=== PATIENT | male | born 1945 | race Caucasian/White ===

== ENCOUNTER 2017-11-04 11:12 | Emergency (ER) | payer OTHER ==
[2017-11-04] MEDS ORDERED: NA CHLORIDE 0.9% 1,000 ML ONE (12:34)
[2017-11-04 12:44] LABS: Absolute Lymphocytes (CBC) 1.1 K/uL (0.7-4.9); Absolute Monocytes 0.5 K/uL (0.1-1.3); Absolute Neutrophil 3.4 K/uL (1.8-8.0); Basophils % 0.6 % (0-1.3); Eosinophils % 0.8 % (0-4.4); Hematocrit 39.7 % (39.6-49.0); Lymphocytes % 21.6 % (15.3-44.8); MCH 30.2 pg (27.0-35.0); MCV 87.4 fL (80-100); MPV 8.5 fL (7.6-11.3); RBC Red Blood Cell Count 4.54 M/uL (4.33-5.43)
[2017-11-04 12:57] LABS: Potassium 4.1 mmol/L (3.5-5.1)
--- NOTE | 2017-11-04 13:19 | EDPHYS ---
Physician Documentation [facility] Name: Neo Winston Age: 72 yrs Sex: Male : 1945 Arrival Date: 11/04/2017 Time: 11:16 Bed 20 Private MD: Gualberto Regan ED Physician Fei Roa HPI: 11/04 13:14 This 72 yrs old Male presents to ER via Ambulatory with complaints of gs Dizziness. 13:14 The patient presents with feeling faint. Onset: The symptoms/episode began/occurred gs acutely. Context: occurred buddhist, just prior to the episode the patient experienced lightheadedness. Modifying factors: The symptoms are alleviated by nothing, the symptoms are aggravated by nothing. Associated signs and symptoms: Pertinent negatives: agitation, confusion, focal weakness, palpitations. Severity of symptoms: At their worst the symptoms were moderate in the emergency department the symptoms have resolved. Patient's baseline: Neuro: alert and fully oriented, Motor: no deficits, Ambulation: walks without assistance. The patient has experienced similar episodes in the past, a few times. Historical: - Home Meds: 11:33 lisinopril 10 mg Oral tab 1 tab once daily [Active]; venlafaxine 37.5 mg oral tab 1 tab aj1 once daily [Active]; Flomax 0.4 mg Oral cp24 1 cap as needed [Active]; - PMHx: 11:33 Hypertension; aj1 - PSHx: 11:33 ear surgery; aj1 - Immunization history:: Flu vaccine is up to date. - Social history:: Smoking status: Patient/guardian denies using tobacco. - Ebola Screening: : Patient denies travel to an Ebola-affected area in the 21 days before illness onset. ROS: 13:14 All other systems are negative. gs Exam: 13:14 Head/Face: Normocephalic, atraumatic. Eyes: Pupils equal round and reactive to light, gs extra-ocular motions intact. Lids and lashes normal. Conjunctiva and sclera are non-icteric and not injected. Cornea within normal limits. Periorbital areas with no swelling, redness, or edema. ENT: Nares patent. No nasal discharge, no septal abnormalities noted. Tympanic membranes are normal and external auditory canals are clear. Oropharynx with no redness, swelling, or masses, exudates, or evidence of obstruction, uvula midline. Mucous membranes moist. Neck: Trachea midline, no thyromegaly or masses palpated, and no cervical lymphadenopathy. Supple, full range of motion without nuchal rigidity, or vertebral point tenderness. No Meningismus. Chest/axilla: Normal chest wall appearance and motion. Nontender with no deformity. No lesions are appreciated. Cardiovascular: Regular rate and rhythm with a normal S1 and S2. No gallops, murmurs, or rubs. Normal PMI, no JVD. No pulse deficits. Respiratory: Lungs have equal breath sounds bilaterally, clear to auscultation and percussion. No rales, rhonchi or wheezes noted. No increased work of breathing, no retractions or nasal flaring. Abdomen/GI: Soft, non-tender, with normal bowel sounds. No distension or tympany. No guarding or rebound. No evidence of tenderness throughout. Back: No spinal tenderness. No costovertebral tenderness. Full range of motion. Skin: Warm, dry with normal turgor. Normal color with no rashes, no lesions, and no evidence of cellulitis. MS/ Extremity: Pulses equal, no cyanosis. Neurovascular intact. Full, normal range of motion. Neuro: Awake and alert, GCS 15, oriented to person, place, time, and situation. Cranial nerves II-XII grossly intact. Motor strength 5/5 in all extremities. Sensory grossly intact. Cerebellar exam normal. Normal gait. 13:14 Constitutional: The patient appears alert, awake. 13:14 ECG was reviewed by the Attending Physician. Vital Signs: 11:33 BP 101 / 63; Pulse 62; Resp 18; Temp 97.8(O); Pulse Ox 98% on R/A; Weight 65.32 kg (R); aj1 Height 5 ft. 5 in. (165.10 cm) (R); Pain 0/10; 12:52 BP 117 / 71; Pulse 59; Resp 18; Pulse Ox 100% on R/A; Pain 0/10; em 13:01 BP 108 / 58 Supine; Pulse 63; Resp 16; Pulse Ox 100% on R/A; mh5 13:43 BP 117 / 60; Pulse 58; Resp 16; Pulse Ox 100% on R/A; Pain 0/10; em 11:33 Body Mass Index 23.96 (65.32 kg, 165.10 cm) aj1 MDM: 12:08 Patient medically screened. gs 13:14 Differential diagnosis: cardiac arrhythmia, generalized weakness, hypovolemia. Data gs reviewed: vital signs, nurses notes. Response to treatment: the patient's symptoms have resolved after treatment, and as a result, I will discharge patient. 11/04 12:10 Order name: CBC with Diff; Complete Time: 13:07 11/04 12:10 Order name: Basic Metabolic Panel; Complete Time: 13:07 11/04 12:10 Order name: EKG; Complete Time: 12:10 11/04 12:10 Order name: EKG - Nurse/Tech; Complete Time: 12:50 EC:14 Rate is 55 beats/min. Rhythm is regular. PA interval is normal. QRS interval is normal. gs T waves are Normal. No ST changes noted. Clinical impression: Normal ECG. Interpreted by me. Administered Medications: 12:40 Drug: NS 0.9% 1000 ml Route: IV; Rate: 1 bolus; Site: right antecubital; em 13:45 Follow up: IV Status: Completed infusion; IV Intake: 1000ml em Disposition: 11/04/17 13:18 Discharged to Home. Impression: near syncope. - Condition is Stable. - Discharge Instructions: Near-Syncope. - Medication Reconciliation Form, Thank You Letter, Antibiotic Education, Prescription Opioid Use form. - Follow up: Private Physician; When: 2 - 3 days; Reason: Re-evaluation by your physician. Signatures: Dispatcher [employer] Karely Hi RN RN aj1 Randy Cruz, INDUSTRIAL MAINTENANCE MANAGER INDUSTRIAL MAINTENANCE MANAGER em Fei Roa MD MD Corrections: (The following items were deleted from the chart) 13:46 13:18 11/04/2017 13:18 Discharged to Home. Impression: near syncope. Condition is em Stable. Forms are Medication Reconciliation Form, Thank You Letter, Antibiotic Education, Prescription Opioid Use. Follow up: Private Physician; When: 2 - 3 days; Reason: Re-evaluation by your physician. gs
--- NOTE | 2017-11-04 13:19 | ER ---
Nurse's Notes [facility] Name: Neo Winston Age: 72 yrs Sex: Male : 1945 Arrival Date: 11/04/2017 Time: 11:16 Bed 20 Private MD: Gualberto Regan Diagnosis: near syncope Presentation: 11/04 11:22 Presenting complaint: Patient states: He was watching a video in [employer] and began to aj1 feel hot and dizzy. Some [employer] members helped him to a bench and after a while he felt better. States this has happened to him once before and he was admitted. Denies syncope. Denies dizziness at this time. Denies chest pain and shortness of breath. Transition of care: patient was not received from another setting of care. Onset of symptoms was November 04, 2017. Risk Assessment: Do you want to hurt yourself or someone else? Patient reports no desire to harm self or others. Initial Sepsis Screen: Does the patient meet any 2 criteria? No. Patient's initial sepsis screen is negative. Does the patient have a suspected source of infection? No. Patient's initial sepsis screen is negative. Care prior to arrival: None. 11:22 Method Of Arrival: Ambulatory aj1 11:22 Acuity: HAYLEY 3 aj1 Triage Assessment: 11:33 General: Appears in no apparent distress. comfortable, Behavior is calm, cooperative, aj1 appropriate for age. Pain: Denies pain. EENT: Reports nasal congestion. Neuro: Level of Consciousness is awake, alert, obeys commands, Oriented to person, place, time, situation, Gait is steady, Speech is normal, Facial symmetry appears normal, Reports dizziness. Cardiovascular: Denies chest pain, palpitations, shortness of breath, syncope, Patient's skin is warm and dry. Respiratory: Airway is patent Respiratory effort is even, unlabored, Respiratory pattern is regular, symmetrical. Derm: Skin is pink, warm \T\ dry. normal. Historical: - Home Meds: 11:33 lisinopril 10 mg Oral tab 1 tab once daily [Active]; venlafaxine 37.5 mg oral tab 1 tab aj1 once daily [Active]; Flomax 0.4 mg Oral cp24 1 cap as needed [Active]; - PMHx: 11:33 Hypertension; aj1 - PSHx: 11:33 ear surgery; aj1 - Immunization history:: Flu vaccine is up to date. - Social history:: Smoking status: Patient/guardian denies using tobacco. - Ebola Screening: : Patient denies travel to an Ebola-affected area in the 21 days before illness onset. Screenin:53 Abuse screen: Denies threats or abuse. Nutritional screening: No deficits noted. em Tuberculosis screening: No symptoms or risk factors identified. Fall Risk None identified. Assessment: 12:00 General: Appears in no apparent distress. comfortable, Behavior is calm, cooperative. em General: Reports having dizziness and blurred vision while at [employer], denies N/V, headache, numbness or tingling, symptoms have resolved. Pain: Denies pain. Neuro: Level of Consciousness is awake, alert, obeys commands, Oriented to person, place, time, situation, Moves all extremities. Speech is normal, Facial symmetry appears normal, Intact Denies weakness dizziness, photophobia. Cardiovascular: Capillary refill < 3 seconds Patient's skin is warm and dry. Respiratory: Airway is patent Respiratory effort is even, unlabored, Respiratory pattern is regular, symmetrical. GI: Abdomen is flat. : No signs and/or symptoms were reported regarding the genitourinary system. Derm: Skin is intact, Skin is pink, warm \T\ dry. Musculoskeletal: Range of motion: intact in all extremities. 12:30 Reassessment: Patient appears in no apparent distress at this time. I agree with above iw assessment by Randy Cruz LVN. 13:00 Reassessment: Patient appears in no apparent distress at this time. Patient and/or em family updated on plan of care and expected duration. Pain level reassessed. Patient is alert, oriented x 3, equal unlabored respirations, skin warm/dry/pink. Patient denies pain at this time. 13:44 Reassessment: Patient appears in no apparent distress at this time. Patient and/or em family updated on plan of care and expected duration. Pain level reassessed. Patient is alert, oriented x 3, equal unlabored respirations, skin warm/dry/pink. Patient denies pain at this time. Vital Signs: 11:33 BP 101 / 63; Pulse 62; Resp 18; Temp 97.8(O); Pulse Ox 98% on R/A; Weight 65.32 kg (R); aj1 Height 5 ft. 5 in. (165.10 cm) (R); Pain 0/10; 12:52 BP 117 / 71; Pulse 59; Resp 18; Pulse Ox 100% on R/A; Pain 0/10; em 13:01 BP 108 / 58 Supine; Pulse 63; Resp 16; Pulse Ox 100% on R/A; 5 13:43 BP 117 / 60; Pulse 58; Resp 16; Pulse Ox 100% on R/A; Pain 0/10; em 11:33 Body Mass Index 23.96 (65.32 kg, 165.10 cm) aj ED Course: 11:16 Patient arrived in ED. mr 11:16 Gualberto Regan MD is Private Physician. mr 11:30 Triage completed. aj1 11:33 Arm band placed on Patient placed in an exam room. aj1 11:38 Randy Cruz LVN is Primary Nurse. em 11:44 Fei Roa MD is Attending Physician. gs 12:30 Initial lab(s) drawn, by nc, sent to lab. Inserted saline lock: 20 gauge in right em antecubital area, using aseptic technique. Blood collected. 12:52 Patient has correct armband on for positive identification. Placed in gown. Bed in low em position. Call light in reach. 13:41 No provider procedures requiring assistance completed. em 13:43 IV discontinued, intact, bleeding controlled, No redness/swelling at site. Pressure em dressing applied. Administered Medications: 12:40 Drug: NS 0.9% 1000 ml Route: IV; Rate: 1 bolus; Site: right antecubital; em 13:45 Follow up: IV Status: Completed infusion; IV Intake: 1000ml em Intake: 13:45 IV: 1000ml; Total: 1000ml. em Outcome: 13:18 Discharge ordered by . gs 13:43 Discharged to home ambulatory. em 13:43 Condition: good 13:43 Discharge instructions given to patient, Instructed on discharge instructions, follow up and referral plans. Demonstrated understanding of instructions, follow-up care. 13:46 Patient left the ED. em Signatures: Karely Velasquez RN RN aj1 Rivera, Maria mr Randy Cruz LVN [employer] em Yany Scott RN RN iw Martinez, Maria [facility] Fei Roa MD MD Corrections: (The following items were deleted from the chart) 13:26 13:02 BP 117 / 57 Sitting; Pulse 64bpm; Resp 18bpm; Pulse Ox 98% RA; [place] [address] 13: 13:04 BP 121 / 65 Standing; Pulse 67bpm; Resp 18bpm; Pulse Ox 99% RA; [place] [address]
[2017-11-04 13:52] VITALS: TEMP 97.8
[2017-11-04 13:53] VITALS: O2SAT 100
[2017-11-04 13:55] VITALS: BP 117/60
--- NOTE | 2017-11-05 09:13 | EKG ---
Test Date: 2017-11-04 Test Time: 12:44:58 Alternative Dispute Resolution Mediator: MERY MEASUREMENT RESULTS: Intervals: Rate: 55 NC: 164 QRSD: 86 QT: 428 QTc: 409 Reeves: P: 76 NC: 164 QRS: 84 T: 54 INTERPRETIVE STATEMENTS: Sinus bradycardia Otherwise normal ECG Compared to ECG 12/30/2015 06:50:10 Sinus rhythm no longer present Incomplete right bundle-branch block no longer present Electronically Signed On 11-05-17 09:12:32 CDT by Gonzalo Cota
== END 2017-11-04 13:46 | disposition home or self-care (01) ==
LOC: ER 11:12
DX: R55 Syncope and collapse (principal); I10 Essential (primary) hypertension
CPT/HCPCS: 36415; 80048; 85025; 93005; 96360; 99284; J7030

== ENCOUNTER 2020-08-31 07:08 | Day surgery (SDC) | payer OTHER ==
--- NOTE | 2020-08-30 08:48 | RAD REPORT ---
EXAM DESCRIPTION: RAD - Chest Pa And Lat (2 Views) - 08/30/2020 8:42 am CLINICAL HISTORY: preop Chest pain. COMPARISON: Chest Single View dated 12/30/2015; Chest Single View dated 12/29/2015; CHEST PA AND LAT 2 VIEW dated 09/18/2014; CHEST SINGLE VIEW dated 12/08/2013 FINDINGS: The lungs are clear. The heart is upper limit of normal in size. No displaced fractures. IMPRESSION: No acute or concerning finding suspected.
[2020-08-30 09:11] LABS: Absolute Lymphocytes (CBC) 1.5 K/uL (0.7-4.9); Basophils % 0.7 % (0-1.3); Hematocrit 40.9 % (39.6-49.0); MPV 8.9 fL (7.6-11.3); RBC Red Blood Cell Count 4.72 M/uL (4.33-5.43)
[2020-08-30 09:27] LABS: BUN Blood Urea Nitrogen 21 mg/dL (7-18); Bicarbonate 28 mmol/L (21-32); Glucose Level 101 mg/dL (74-106); Potassium 3.7 mmol/L (3.5-5.1); Sodium Level 138 mmol/L (136-145)
[2020-08-30 09:28] LABS: Protime INR 0.96
[2020-08-31] MEDS ORDERED: Ringers Lactate 0 ML IV ONE (07:35)
[2020-08-31] MEDS ORDERED: AMPICILLIN SODIUM 2 GM in NA CHLORIDE 0.9% 100 ML IVPB SCH (08:00)
[2020-08-31] MEDS ORDERED: Gentamicin Inj 160 MG in NA CHLORIDE 0.9% 100 ML IV SCH (08:00)
[2020-08-31] MEDS ORDERED: FENTANYL CITR 100 MCG/2 ML ONE (08:59)
[2020-08-31] MEDS ORDERED: MIDAZOLAM HCL 2 MG/2 ML INJ ONE (08:59)
[2020-08-31] MEDS ORDERED: propofoL 200 MG/20 ML VIAL IV ONE (08:59)
[2020-08-31] MEDS ORDERED: LIDOCAINE 1% MPF 5 ML VIAL ONE (08:59)
[2020-08-31] MEDS ORDERED: Ringers Lactate 1,000 ML IV ONE (09:05)
[2020-08-31] MEDS ORDERED: KETOROLAC 30 MG/ML INJ ONE (09:33)
[2020-08-31] MEDS ORDERED: ONDANSETRON 4 MG/2 ML VIAL ONE (09:34)
[2020-08-31] MEDS ORDERED: EPHEDRINE SULF 50 MG/ML VIAL ONE (10:02)
[2020-08-31] MEDS ORDERED: NS 0.9% VIAL 10 ML ONE (10:03)
[2020-08-31 10:36] VITALS: O2SAT 99
[2020-08-31 11:49] VITALS: BP 113/53; TEMP 97.8
[2020-08-31] MEDS ORDERED: dexAMETHasone 4 MG/ML VIAL ONE (13:06)
--- NOTE | 2020-08-31 21:33 | OP ---
Surgeon: ERICH DORAN Preoperative Diagnoses: 1.Benign prostatic hypertrophy with lower urinary tract obstructive symptoms. 2.Urge incontinence. 3.Incomplete bladder emptying. Postoperative Diagnoses: 1.Benign prostatic hypertrophy with lower urinary tract obstructive symptoms. 2.Urge incontinence. 3.Incomplete bladder emptying. Principal Procedure: Bipolar transurethral resection of the prostate. Indication For Procedure: Mr. Winston is a 75-year-old gentleman who presented with obstructive lower urinary symptoms along with urge incontinence and incomplete emptying of his bladder which he felt w as being improved with medical therapy. Despite this and perhaps associated with the new data that w ould suggest an increased risk of CHF associated with use of the alpha kassie, class of BPH medicati on, he elected to proceed with surgical therapy and given the intravesical median lobe projection wit hout significant median bar with lateral sulci, a bipolar transurethral resection of the prostate was recommended. Procedure In Detail: Note: The patient was consented in the preoperative holding area before being transferred to the operative suite where general anesthesia was induced. He was given ampicillin and gentamicin 160 mg IV antimicrobial prophylaxis. Pneumo boots were provided for DVT prophylaxis. He was placed in the lithotomy position, padded and secured to the table appropriately. His genitalia were prepped using Hibiclens and he was draped in standard fashion. The case was begun using a 26-Fr ench resectoscope and a visual obturator to traverse the urethra and enter the bladder with ease. Th e bladder was surveyed, and there were no mucosal lesions, foreign bodies, or stones. The prostatic urethral anatomy was as previously described with an intravesical projecting component of the median lobe along with bilateral lobar hypertrophy. I then began by resecting the median lobe with direct v ision of the ureteral orifices bilaterally. Once the median lobe was resected down to the bladder ne ck, I then continued to resect a moderate component of an elevation of the median bar before progress ing with resection of the left lateral lobar hypertrophy and then proceeding to the anterior lobe and then to the right lateral lobar hypertrophy. All prostatic urethral chips were Ellik evacuated from the bladder, and the ureteral orifices were uninjured throughout the entirety of the resection. I t hen fulgurated the entirety of the fossa and any bleeding vessels in detail and even with his bladder decompressed, there was no bleeding noted at the conclusion of the procedure. There was no venous o oze either. As a result, I refilled his bladder and placed a 22-Ecuadorean 3-way Davalos catheter after re moving the resectoscope. Sterile water 30 cc was placed in the balloon, and the catheter was connect ed to CBI with normal saline at slow drip and was light pink to clear. The catheter was then placed to moderate traction, and the patient after being taken out of lithotomy, was transferred to a [facility] her and then to the recovery room in good condition. Complications: None. Estimated Blood Loss: Less than 20 cc. Discharge Disposition: He will be given a prescription for Tylenol No. 4 as well as Bactrim for 6 da ys to cover him through a voiding trial on either Sunday or Sunday. He may require anticholinergic m anagement or Myrbetriq if he has persistent issues with significant detrusor instability and urgency with urge incontinence. Otherwise, we would endeavor to have him wean off the alpha blockers usually within 1-3 months' time and he can follow up with me in about 3-6 months interval assessment. DENG/FRANCES Voice ID: [id number] Report ID: [id number]
== END 2020-08-31 11:44 | disposition home or self-care (01) ==
LOC: OR 07:08
PROVIDERS: ATTEND Urology
PROC: 0VT08ZZ Resection of Prostate, Via Natural or Artificial Opening Endoscopic (ICD-10-PCS; principal; 2020-08-31 08:30)
DX: N40.1 Benign prostatic hyperplasia with lower urinary tract symptoms (principal); N39.41 Urge incontinence; R33.9 Retention of urine, unspecified; Z20.822 Contact with and (suspected) exposure to COVID-19
CPT/HCPCS: 93005; 87088; 85025; 87086; 80048; 36415; 85610; 88305; 71046; 52601; U0003; J2704; J1580; J3010; J7120; J2405; J0290; J1100; J2250; J2469

== ENCOUNTER 2021-07-19 19:25 | Emergency (ER) | payer OTHER ==
--- OUTSIDE RECORDS SUMMARY | 2021-07-19 19:29 | XMS REPORT | Continuity of Care Document ---
:1945 Author Organization [facility] t Address [address] [place] [address] [place] [id number] Care Team Providers Name Role Phone Unavailable Unavailable Unavailable Problems This patient has no known problems. Allergies, Adverse Reactions, Alerts This patient has no known allergies or adverse reactions. Medications This patient has no known medications. Procedures This patient has no known procedures. Encounters Start End Encounter Admission Attending Care Care Encounter Source Date/Time Date/Time Type Type Clinicians Facility Department ID 2021-05-25 Outpatient [facility] [id number] [facility] [address] 14:34:31 [facility] 2021-05-25 Outpatient [facility] [id number] [facility] [address] 13:26:13 [id number] [facility] 2021-05-25 Outpatient [facility] [id number] [facility] [address] 13:22:31 [id number] [facility] 2021-05-25 Outpatient [facility] [id number] [facility] 13:00:25 [id number] [facility] 2021-05-25 Outpatient [facility] [id number] [facility] [address] 12:51:55 [id number] [facility] Results This patient has no known results.
--- NOTE | 2021-07-19 20:56 | ER ---
Nurse's Notes [facility] Name: Neo Winston Age: 76 yrs Sex: Male : 1945 Arrival Date: 07/19/2021 Time: 19:29 Bed 11 Private MD: Diagnosis: Unspecified visual disturbance Presentation: 07/19 19:37 Chief complaint: Patient states: "I think I have an infection in my right eye. Its been ab2 burning off and on for a few weeks but constantly burning today.". Coronavirus screen: Vaccine status: Patient reports receiving the 2nd dose of the covid vaccine. Client denies travel out of the [place] in the last 14 days. At this time, the client does not indicate any symptoms associated with coronavirus-19. Ebola Screen: Patient negative for fever greater than or equal to 101.5 degrees Fahrenheit, and additional compatible Ebola Virus Disease symptoms Patient denies exposure to infectious person. Patient denies travel to an Ebola-affected area in the 21 days before illness onset. No symptoms or risks identified at this time. Initial Sepsis Screen: Does the patient meet any 2 criteria? No. Patient's initial sepsis screen is negative. Does the patient have a suspected source of infection? No. Patient's initial sepsis screen is negative. Risk Assessment: Do you want to hurt yourself or someone else? Patient reports no desire to harm self or others. Onset of symptoms is unknown. 19:37 Method Of Arrival: Ambulatory ab2 19:37 Acuity: HAYLEY 4 ab2 Triage Assessment: 19:41 General: Appears in no apparent distress. comfortable, Behavior is calm, cooperative, ab2 appropriate for age. Pain: Complains of pain in right eye Pain currently is 0 out of 10 on a pain scale. at worst was 3 out of 10 on a pain scale. EENT: Reports blurred vision in outer aspect of conjuctiva of right eye, iris of right eye and inner aspect of conjuctiva of right eye. Historical: - Allergies: 19:40 No Known Allergies; ab2 - PMHx: 19:40 Hypertension; ab2 - PSHx: 19:40 TURP; ab2 - Immunization history:: Adult Immunizations up to date. - Social history:: Smoking status: Patient denies any tobacco usage or history of. Screenin:45 Abuse screen: Denies threats or abuse. Denies injuries from another. Nutritional ab2 screening: No deficits noted. Tuberculosis screening: No symptoms or risk factors identified. Fall Risk None identified. Assessment: 19:44 General: Appears in no apparent distress. uncomfortable, Behavior is calm, cooperative, ab2 appropriate for age. Pain: Complains of pain in right eye Pain currently is 0 out of 10 on a pain scale. Neuro: Level of Consciousness is awake, alert, obeys commands, Oriented to person, place, time, situation, Appropriate for age Certified Nurse Midwife are equal bilaterally Moves all extremities. Gait is steady, Speech is normal, Facial symmetry appears normal. Cardiovascular: No deficits noted. Denies chest pain, shortness of breath, Heart tones S1 S2 present. Respiratory: No deficits noted. Airway is patent Respiratory effort is even, unlabored, Respiratory pattern is regular, symmetrical. GI: No deficits noted. No signs and/or symptoms were reported involving the gastrointestinal system. : No deficits noted. No signs and/or symptoms were reported regarding the genitourinary system. EENT: Reports blurred vision in right eye. Derm: No deficits noted. No signs and/or symptoms reported regarding the dermatologic system. Musculoskeletal: No deficits noted. No signs and/or symptoms reported regarding the musculoskeletal system. Vital Signs: 19:37 BP 152 / 84; Pulse 83; Resp 17; Temp 97.9; Pulse Ox 99% on R/A; Weight 65.77 kg; Height ab2 5 ft. 5 in. (165.10 cm); Pain 0/10; 21:05 BP 141 / 76; Pulse 80; Resp 16; Pulse Ox 98% on R/A; ab2 19:37 Body Mass Index 24.13 (65.77 kg, 165.10 cm) ab2 ED Course: 19:29 Patient arrived in ED. ja2 19:40 Triage completed. ab2 19:42 Arm band placed on right wrist. ab2 19:44 Manish Sarabia is Primary Nurse. ab2 19:45 French Haider PA is PHCP. jr8 19:45 Vinny Simental MD is Attending Physician. jr8 19:45 No provider procedures requiring assistance completed. ab2 19:46 Patient has correct armband on for positive identification. Bed in low position. Call ab2 light in reach. 20:55 Mahsa Calvo MD is Referral Physician. jr8 21:05 Patient did not have IV access during this emergency room visit. ab2 Administered Medications: No medications were administered Outcome: : Discharge ordered by . jr8 21:05 Discharged to home ambulatory. ab2 21:05 Condition: good 21:05 Discharge instructions given to patient, Instructed on discharge instructions, follow up and referral plans. Demonstrated understanding of instructions, follow-up care. 21:06 Patient left the ED. ab2 Signatures: French Haider PA PA jr8 Radha Og Alexis ab2
--- NOTE | 2021-07-19 20:56 | EDPHYS ---
Physician Documentation [facility] Name: Neo Winston Age: 76 yrs Sex: Male : 1945 Arrival Date: 07/19/2021 Time: 19:29 Bed 11 Private MD: ED Physician Vinny Simental HPI: 07/19 23:58 This 76 yrs old Male presents to ER via Ambulatory with complaints of Eye Problem, jr8 Redness of Eye. 23:58 Onset: The symptoms/episode began/occurred gradually. Duration: the symptoms are jr8 intermittent. Aggravated by nothing. Alleviated by nothing. Associated signs and symptoms: Pertinent positives: None. Patient wears glasses. Severity of symptoms: At their worst the symptoms were mild in the emergency department the symptoms are unchanged. The patient has not experienced similar symptoms in the past. The patient has not recently seen a physician. Patient stated that he occasionally has blurred vision over the past few days to the right eye without any other symptoms. Had to have retinal surgery in the past for a blind spot in his eye but feels that this is not the same. Has not been able to get into ophthalmology at this time.. Historical: - Allergies: 19:40 No Known Allergies; ab2 - PMHx: 19:40 Hypertension; ab2 - PSHx: 19:40 TURP; ab2 - Immunization history:: Adult Immunizations up to date. - Social history:: Smoking status: Patient denies any tobacco usage or history of. ROS: 23:58 ENT: Negative for injury, pain, and discharge, Neck: Negative for injury, pain, and jr8 swelling, Cardiovascular: Negative for chest pain, palpitations, and edema, Respiratory: Negative for shortness of breath, cough, wheezing, and pleuritic chest pain, Abdomen/GI: Negative for abdominal pain, nausea, vomiting, diarrhea, and constipation, Back: Negative for injury and pain, MS/Extremity: Negative for injury and deformity, Skin: Negative for injury, rash, and discoloration, Neuro: Negative for headache, weakness, numbness, tingling, and seizure. 23:58 Eyes: Positive for blurry vision. Exam: 23:58 Visual Acuity: Visual acuity is within normal limits. jr8 23:58 Constitutional: This is a well developed, well nourished patient who is awake, alert, and in no acute distress. Head/Face: Normocephalic, atraumatic. Eyes: Pupils equal round and reactive to light, extra-ocular motions intact. Lids and lashes normal. Conjunctiva and sclera are non-icteric and not injected. Cornea within normal limits. Periorbital areas with no swelling, redness, or edema. ENT: Nares patent. No nasal discharge, no septal abnormalities noted. Tympanic membranes are normal and external auditory canals are clear. Oropharynx with no redness, swelling, or masses, exudates, or evidence of obstruction, uvula midline. Mucous membranes moist. Neck: Trachea midline, no thyromegaly or masses palpated, and no cervical lymphadenopathy. Supple, full range of motion without nuchal rigidity, or vertebral point tenderness. No Meningismus. Cardiovascular: Regular rate and rhythm with a normal S1 and S2. No gallops, murmurs, or rubs. Normal PMI, no JVD. No pulse deficits. Respiratory: Lungs have equal breath sounds bilaterally, clear to auscultation and percussion. No rales, rhonchi or wheezes noted. No increased work of breathing, no retractions or nasal flaring. Skin: Warm, dry with normal turgor. Normal color with no rashes, no lesions, and no evidence of cellulitis. MS/ Extremity: Pulses equal, no cyanosis. Neurovascular intact. Full, normal range of motion. Neuro: Awake and alert, GCS 15, oriented to person, place, time, and situation. Cranial nerves II-XII grossly intact. Motor strength 5/5 in all extremities. Sensory grossly intact. Vital Signs: 19:37 BP 152 / 84; Pulse 83; Resp 17; Temp 97.9; Pulse Ox 99% on R/A; Weight 65.77 kg; Height ab2 5 ft. 5 in. (165.10 cm); Pain 0/10; 21:05 BP 141 / 76; Pulse 80; Resp 16; Pulse Ox 98% on R/A; ab2 19:37 Body Mass Index 24.13 (65.77 kg, 165.10 cm) ab2 MDM: 20:07 Patient medically screened. soumya 20:54 Data reviewed: vital signs, nurses notes, and as a result, I will discharge patient. jr8 Data interpreted: Pulse oximetry: on room air is 99 %. Interpretation: normal. Counseling: I had a detailed discussion with the patient and/or guardian regarding: the historical points, exam findings, and any diagnostic results supporting the discharge/admit diagnosis, the need for outpatient follow up, an opthalmologist, to return to the emergency department if symptoms worsen or persist or if there are any questions or concerns that arise at home. Administered Medications: No medications were administered Disposition: 07/20 07:09 Co-signature as Attending Physician, Vinny Simental MD I agree with the assessment and soumya plan of care. Disposition Summary: 07/19/21 20:55 Discharge Ordered Location: Home jr8 Problem: new jr8 Symptoms: have improved jr8 Condition: Stable jr8 Diagnosis - Unspecified visual disturbance jr8 Followup: jr8 - With: Mahsa Calvo MD - When: 2 - 3 days - Reason: Recheck today's complaints, Continuance of care, Re-evaluation by your physician Discharge Instructions: - Discharge Summary Sheet jr8 - Visual Disturbances jr8 Forms: - Medication Reconciliation Form jr8 - Thank You Letter jr8 - Antibiotic Education jr8 - Prescription Opioid Use jr8 Signatures: Vinny Simental MD MD cha Roszak, Josh, PA PA jr8 Manish Sarabia
[2021-07-19 23:22] VITALS: TEMP 97.9
[2021-07-19 23:23] VITALS: BP 141/76; O2SAT 98
== END 2021-07-19 21:06 | disposition home or self-care (01) ==
LOC: ER 19:25
DX: H53.8 Other visual disturbances (principal); I10 Essential (primary) hypertension
CPT/HCPCS: 99281

== ENCOUNTER 2022-07-14 12:14 | Observation (INO) | payer OTHER ==
--- OUTSIDE RECORDS SUMMARY | 2022-07-14 12:23 | XMS REPORT | Continuity of Care Document ---
:[address] [facility] t Address [address] [place] [address] Care Team Providers Name Role Phone Unavailable Unavailable Unavailable Problems This patient has no known problems. Allergies, Adverse Reactions, Alerts This patient has no known allergies or adverse reactions. Medications This patient has no known medications. Procedures This patient has no known procedures. Encounters Start End Encounter Admission Attending Care Care Encounter Source Date/Time Date/Time Type Type Clinicians Facility Department ID 2021-12-02 Outpatient [facility] [id number] Common 15:14:01 [facility] 2021-05-25 Outpatient [facility] [id number] Common 14:34:31 [facility] 2021-05-25 Outpatient [facility] STL[facility] [id number] Common 13:26:13 [id number] [facility] 2021-05-25 Outpatient [facility] [id number] Common 13:22:31 [facility] 2021-05-25 Outpatient [facility] STL[facility] [id number] Common 13:00:25 [id number] [facility] 2021-05-25 Outpatient [facility] STL[facility] [id number] Common 12:51:55 [id number] [facility] Results This patient has no known results.
--- NOTE | 2022-07-14 12:59 | RAD REPORT ---
EXAM DESCRIPTION: CT - Ct Stroke Brain Wo Cont - 07/14/2022 12:52 pm CLINICAL HISTORY: STROKE ALERT COMPARISON: Head Brain Wo Cont dated 12/29/2015; HEAD BRAIN W O CONTRAST dated 12/08/2013 TECHNIQUE: All CT scans are performed using dose optimization technique as appropriate and may inclu de automated exposure control or mA/KV adjustment according to patient size. FINDINGS: No intracranial hemorrhage, hydrocephalus or extra-axial fluid collection.Mild brain atrop hy.No areas of brain edema or evidence of midline shift. The paranasal sinuses and mastoids are clear. The calvarium is intact. IMPRESSION: No acute intracranial abnormality.
[2022-07-14 13:17] LABS: Absolute Lymphocytes (CBC) 1.6 K/uL (0.7-4.9); Hematocrit 42.6 % (39.6-49.0); Lymphocytes % 28.5 % (15.3-44.8); MCV 86.3 fL (80-100); MPV 7.8 fL (7.6-11.3); RBC Red Blood Cell Count 4.94 M/uL (4.33-5.43)
--- NOTE | 2022-07-14 13:25 | RAD REPORT ---
EXAM DESCRIPTION: CT - Head angio - 07/14/2022 1:00 pm CLINICAL HISTORY: TIA Headache, drowsiness, CVA symptomology COMPARISON: Ct Stroke Brain Wo Cont dated 07/14/2022; Head Brain Wo Cont dated 12/29/2015 TECHNIQUE: CT angiography of the head was performed with MIPs. All CT scans are performed using dose optimization technique as appropriate and may include automated exposure control or mA/KV adjustment according to patient size. FINDINGS: No evidence of large vessel occlusion. No evidence of aneurysm is detected. No flow-limiti ng stenosis or vascular malformation identified. Antegrade flow is seen in the vertebral arteries. The vertebral arteries are codominant. The visualized dural venous sinuses are patent. IMPRESSION: No significant flow abnormality is detected.
[2022-07-14 13:26] LABS: Protime INR 0.94
--- NOTE | 2022-07-14 13:31 | RAD REPORT ---
EXAM DESCRIPTION: CT - Neck Angio - 07/14/2022 1:00 pm CLINICAL HISTORY: tia Headache, drowsiness, CVA symptomology COMPARISON: <Comparisons> TECHNIQUE: CT angiography of the neck vessels was performed with MIPs. All CT scans are performed using dose optimization technique as appropriate and may include automated exposure control or mA/KV adjustment according to patient size. FINDINGS: A left aortic arch is identified with normal three vessel configuration of the great vesse ls. No significant flow abnormality is seen of the common carotid bilaterally. Hard plaquing is seen in both carotid bulbs, [id number] and greater on the right. Findings resu lt in stenosis estimated less than 50% bilaterally using NASCET criteria. Normal flow is seen within both vertebral arteries. IMPRESSION: Hard plaquing in both carotid bulbs, slightly greater on the right, results stenosis les s than 50% based on NASCET criteria.
[2022-07-14 13:49] LABS: ALT/SGPT 78 U/L (16-61); AST/SGOT 35 U/L (15-37); Albumin 3.7 g/dL (3.4-5.0); Alkaline Phosphatase 89 U/L (45-117); BUN Blood Urea Nitrogen 15 mg/dL (7-18); Bicarbonate 30 mEq/L (21-32); Bilirubin Total 0.6 mg/dL (0.2-1.0); Glomerular Filtration Rate 86 ml/min (=/>90); Glucose Level 106 mg/dL (74-106); Potassium 3.6 mEq/L (3.5-5.1); Protein, Total 7.3 g/dL (6.4-8.2); Sodium Level 137 mEq/L (136-145); Troponin High Sensitivity 3.5 pg/mL (<58.9)
[2022-07-14 13:50] LABS: Bilirubin Direct < 0.1 mg/dL (0-0.2)
--- NOTE | 2022-07-14 13:57 | ER ---
Nurse's Notes [facility] Name: Neo Winston Age: 77 yrs Sex: Male : 1945 Arrival Date: 07/14/2022 Time: 12:15 Bed 7 Private MD: Diagnosis: Transient cerebral ischemic attack, unspecified Presentation: 07/14 12:37 Chief complaint: Patient states: TRANSIENT APHASIA AND R EYE VISUAL DEFECT THIS AM. bp Coronavirus screen: At this time, the client does not indicate any symptoms associated with coronavirus-19. Ebola Screen: No symptoms or risks identified at this time. No acute neurological deficit is noted. Pre-hospital glucose is not applicable to this patient. Initial Sepsis Screen: Does the patient meet any 2 criteria? No. Patient's initial sepsis screen is negative. Does the patient have a suspected source of infection? No. Patient's initial sepsis screen is negative. Risk Assessment: Do you want to hurt yourself or someone else? Patient reports no desire to harm self or others. Onset of symptoms was July 14, 2022 at 09:00. 12:37 Method Of Arrival: Ambulatory bp 12:37 Acuity: HAYLEY 3 bp Triage Assessment: 12:38 The onset of the patients symptoms was July 14, 2022 at 09:00. General: Appears in no bp apparent distress. comfortable, Behavior is calm, cooperative, appropriate for age. Pain: Denies pain. EENT: Reports DEFECT IN VISUAL FIELD OF R EYE. Neuro: Reports EXPRESSIVE APHASIA. Cardiovascular: No deficits noted. Respiratory: No deficits noted. GI: No signs and/or symptoms were reported involving the gastrointestinal system. : No signs and/or symptoms were reported regarding the genitourinary system. Derm: No deficits noted. Musculoskeletal: No deficits noted. Stroke Activation: Symptom onset < 3 hours Physician: Stroke Attending; Name: ; Notified At: ; Arrived At: Physician: Chief Stroke Resident; Name: ; Notified At: ; Arrived At: Physician: Stroke Resident; Name: ; Notified At: ; Arrived At: Physician: ED Attending; Name: ; Notified At: ; Arrived At: Physician: ED Resident; Name: ; Notified At: ; Arrived At: Historical: - Allergies: 12:38 No Known Allergies; bp - Home Meds: 12:38 Flomax 0.4 mg Oral cp24 1 cap as needed [Active]; venlafaxine 37.5 mg Oral tab 1 tab bp once daily [Active]; lisinopril 10 mg Oral tab 1 tab once daily [Active]; - PMHx: 12:38 Hypertension; MACULAR DEGENERATION; bp - PSHx: 12:38 TURP; bp - Immunization history:: Adult Immunizations up to date. - Social history:: Smoking status: Patient denies any tobacco usage or history of. - Family history:: not pertinent. Screenin:41 [facility] ED Fall Risk Assessment (Adult) History of falling in the last 3 months, bp including since admission No falls in past 3 months (0 pts). Abuse screen: Denies threats or abuse. Denies injuries from another. Nutritional screening: No deficits noted. Tuberculosis screening: No symptoms or risk factors identified. Assessment: 12:15 Reassessment: Attempting to assess patient. Pt states that he is back to baseline at this time and must use the restroom now. Pt ambulated to restroom with steady gait. Offered wheelchair, but patient politely declined. Vital Signs: 12:37 BP 162 / 79; Pulse 68; Resp 16; Temp 98; Pulse Ox 99% ; bp ED Course: 12:15 Patient arrived in ED. mr 12:18 Gualberto Dickens, RN is Primary Nurse. bp 12:19 Ish Espinal MD is Attending Physician. rt 12:38 Triage completed. bp 12:38 Arm band placed on. bp 12:41 Patient has correct armband on for positive identification. Bed in low position. Call bp light in reach. Side rails up X2. 12:53 CT Stroke Brain w/o Contrast In Process Unspecified. EDMS 13:02 CT Head Angio In Process Unspecified. EDMS 13:02 CT Neck Angio In Process Unspecified. EDMS 13:07 Inserted saline lock: 20 gauge in right antecubital area, using aseptic technique. ll1 Blood collected. 13:51 Stroke CXR 1 View In Process Unspecified. EDMS 13:56 Sina Cole MD is Hospitalizing Provider. rt Administered Medications: No medications were administered Outcome: 13:57 Decision to Hospitalize by Provider. rt Signatures: Dispatcher [employer] EDWY RandellAntonieta mr Martha Barroso RN RN Gualberto Dickens RN RN bp Lewis, Lynsay, RN RN ll1 Ish Espinal MD MD rt
--- NOTE | 2022-07-14 13:57 | EDPHYS ---
Physician Documentation [facility] Name: Neo Winston Age: 77 yrs Sex: Male : 1945 Arrival Date: 07/14/2022 Time: 12:15 Bed 7 Private MD: ED Physician Ish Espinal HPI: 07/14 13:25 This 77 yrs old Male presents to ER via Ambulatory with complaints of S/S of Possible rt Stroke. 13:25 Patient presents to the ED with multiple complaints. Patient states that he developed rt an acute onset of a blanchard spot in his right eye vision, states this is similar to when he had retinal surgery about 10 years ago. He states that he noted his blood pressure was elevated, states that he had a brief episode of not fluency with speech as well as aphasia at about 8 AM. The patient denied any numbness, weakness at that time. Patient states that the symptoms have resolved currently, that he no longer has difficulty with speech. Denies other acute complaints at this time, symptoms are moderate in severity, no other aggravating or elevating factors.. Historical: - Allergies: 12:38 No Known Allergies; bp - Home Meds: 12:38 Flomax 0.4 mg Oral cp24 1 cap as needed [Active]; venlafaxine 37.5 mg Oral tab 1 tab bp once daily [Active]; lisinopril 10 mg Oral tab 1 tab once daily [Active]; - PMHx: 12:38 Hypertension; MACULAR DEGENERATION; bp - PSHx: 12:38 TURP; bp - Immunization history:: Adult Immunizations up to date. - Social history:: Smoking status: Patient denies any tobacco usage or history of. - Family history:: not pertinent. ROS: 13:25 Constitutional: Negative for fever, chills, and weight loss, Cardiovascular: Negative rt for chest pain, palpitations, and edema, Respiratory: Negative for shortness of breath, cough, wheezing, and pleuritic chest pain, Abdomen/GI: Negative for abdominal pain, nausea, vomiting, diarrhea, and constipation, Skin: Negative for injury, rash, and discoloration, Psych: Negative for depression, anxiety, suicide ideation, homicidal ideation, and hallucinations. 13:25 Eyes: Positive for visual disturbance. 13:25 Neuro: Positive for Aphasia. Exam: 13:25 Constitutional: This is a well developed, well nourished patient who is awake, alert, rt and in no acute distress. ENT: Nares patent. No nasal discharge, no septal abnormalities noted. Tympanic membranes are normal and external auditory canals are clear. Oropharynx with no redness, swelling, or masses, exudates, or evidence of obstruction, uvula midline. Mucous membranes moist. Chest/axilla: Normal chest wall appearance and motion. Nontender with no deformity. No lesions are appreciated. Cardiovascular: Regular rate and rhythm with a normal S1 and S2. No gallops, murmurs, or rubs. Normal PMI, no JVD. No pulse deficits. Respiratory: Lungs have equal breath sounds bilaterally, clear to auscultation and percussion. No rales, rhonchi or wheezes noted. No increased work of breathing, no retractions or nasal flaring. Abdomen/GI: Soft, non-tender, with normal bowel sounds. No distension or tympany. No guarding or rebound. No evidence of tenderness throughout. Skin: Warm, dry with normal turgor. Normal color with no rashes, no lesions, and no evidence of cellulitis. MS/ Extremity: Pulses equal, no cyanosis. Neurovascular intact. Full, normal range of motion. Psych: Awake, alert, with orientation to person, place and time. Behavior, mood, and affect are within normal limits. 13:25 Eyes: No visual field deficits, extraocular muscles intact. 13:25 ECG was reviewed by the Attending Physician. 13:25 Neuro: Cranial nerves II through XII intact, speech normal, strength and sensation intact in upper and lower extremities. Vital Signs: 12:37 BP 162 / 79; Pulse 68; Resp 16; Temp 98; Pulse Ox 99% ; bp MDM: 12:21 Patient medically screened. rt 07/14 12:34 Order name: EKG; Complete Time: 12:35 rt 07/14 12:34 Order name: Cardiac monitoring; Complete Time: 12:36 rt 07/14 12:34 Order name: Accucheck; Complete Time: 12:36 rt 07/14 12:34 Order name: EKG - Nurse/Tech; Complete Time: 12:36 rt 07/14 12:34 Order name: Stroke Swallow Screen; Complete Time: 12:36 rt 07/14 12:34 Order name: NPO; Complete Time: 12:36 rt 07/14 12:34 Order name: IV Saline Lock; Complete Time: 13:10 rt 07/14 12:34 Order name: Labs collected and sent; Complete Time: 13:10 rt 07/14 12:34 Order name: O2 Per Protocol; Complete Time: 13:10 rt 07/14 12:34 Order name: O2 Sat Monitoring; Complete Time: 13:10 rt 07/14 12:34 Order name: CBC with Diff; Complete Time: 13:24 rt 07/14 12:34 Order name: CT Stroke Brain w/o Contrast; Complete Time: 13:24 rt 07/14 12:34 Order name: Stroke CXR 1 View rt 07/14 12:34 Order name: Basic Metabolic Panel; Complete Time: 13:51 rt 07/14 12:34 Order name: Hepatic Function; Complete Time: 13:51 rt 07/14 12:34 Order name: High Sensitivity Troponin; Complete Time: 13:51 rt 07/14 12:34 Order name: Protime (+inr); Complete Time: 13:51 rt 07/14 12:34 Order name: Ptt, Activated; Complete Time: 13:51 rt 07/14 12:34 Order name: CT Head Angio; Complete Time: 13:51 rt 07/14 12:34 Order name: CT Neck Angio; Complete Time: 13:51 rt 07/14 13:29 Order name: CREATININE WHOLE BLOOD; Complete Time: 13:51 EDMS EC:25 Rate is 62 beats/min. Rhythm is regular, Normal Sinus Rhythm with No ectopy, Right rt bundle branch block. Left axis deviation noted. [place] interval is normal. QRS interval is normal. QT interval is normal. No Q waves. T waves are Normal. No ST changes noted. Administered Medications: No medications were administered Disposition Summary: 07/14/22 13:57 Hospitalization Ordered Hospitalization Status: Observation rt Provider: Sina Cole rt Location: Telemetry/MedSurg (observation) rt Condition: Stable rt Problem: new rt Symptoms: are resolved rt Bed/Room Type: Standard rt Room Assignment: rt Diagnosis - Transient cerebral ischemic attack, unspecified rt Forms: - Medication Reconciliation Form rt - SBAR form rt Signatures: Dispatcher [employer] EDGualberto Wall RN RN Ish Dunn MD MD rt
--- NOTE | 2022-07-14 14:01 | RAD REPORT ---
EXAM DESCRIPTION: RAD - Chest Single View - 07/14/2022 1:49 pm CLINICAL HISTORY: tia Chest pain. COMPARISON: <Comparisons> FINDINGS: Portable technique limits examination quality. The lungs are grossly clear. The heart is normal in size. No displaced fractures. IMPRESSION: No acute intrathoracic process suspected.
[2022-07-14] MEDS ORDERED: ACETAMINOPHEN 500 MG TAB PO PRN (14:39)
[2022-07-14] MEDS ORDERED: ONDANSETRON 4 MG/2 ML VIAL IV PRN (14:39)
--- NOTE | 2022-07-14 15:00 | P.HP ---
Certification for Inpatient Patient admitted to: Observation With expected LOS: <2 Midnights Practitioner: I am a practitioner with admitting privileges, knowledge of patient current condition, hospital course, and medical plan of care. Services: Services provided to patient in accordance with Admission requirements found in Title 42 Section 412.3 of the Code of Federal Regulations Patient History Date of Service: 07/14/22 Primary Care Provider: RASHEED Reason for admission: TIA History of Present Illness: This is a 77-year-old male with past medical history significant for hypertension, macular degeneration, and BPH. Patient presents to the emergency room with complaints of strokelike symptoms. Patient reported symptoms started at 1030 this morning with initial complaint of vision change with aphasia. He reports additional symptoms of dizziness, dull headache, and poor balance. Patient denies any numbness, or weakness to any of his extremities. Patient also reported symptoms of urinary retention for more than a year. He stated that he took his Solifenacin for the first time in 1 year. Patient does report some noncompliance with his lisinopril and Flomax. Patient's symptoms have resolved. Patient will be admitted under the care of Dr. Cole for closed observation. Allergies No Known Allergies Allergy (Verified 08/30/20 08:11) Home Medications: lisinopriL [Lisinopril] 10 mg PO [id number] 12/29/15 Omeprazole 20 mg PO BID 08/30/20 Tamsulosin [Flomax*] 0.4 mg PO BID 08/30/20 - Past Medical/Surgical History Diabetic: No -: HYPERTENSION -: CATARCTS WITH SURGERY -: CATARACT TO BOTH EYES -: RUPTURED BICEPT REPAIR -: STEPIDECTOMY X 2 -: TONSILLECTOMY - Social History Smoking Status: Never smoker Alcohol use: No CD- Drugs: No Caffeine use: Yes Place of Residence: Home Review of Systems 10-point ROS is otherwise unremarkable General: Weakness Eyes: Vision Change Neurological: Weakness, Change in Speech, As per HPI Physical Examination - Vital Signs Temperature: 98 F Blood Pressure: 162/79 Pulse: 68 Respirations: 16 Pulse Ox (%): 98 - Physical Exam General: Alert, In no apparent distress, Oriented x3 HEENT: Atraumatic, Normocephalic, PERRLA Neck: Supple, 2+ carotid pulse no bruit Respiratory: Clear to auscultation bilaterally Cardiovascular: No edema, Normal pulses, Regular rate/rhythm Capillary refill: <2 Seconds Gastrointestinal: Normal bowel sounds Musculoskeletal: No clubbing, No swelling Integumentary: No rashes Neurological: Normal speech, Normal strength at 5/5 x4 extr, Normal tone, Sensation intact, Normal affect Lymphatics: No axilla or inguinal lymphadenopathy - Studies Laboratory Data (last 24 hrs) 07/14/22 13:00: PT 10.3, INR 0.94, APTT 29.4 07/14/22 13:00: WBC 5.70, Hgb 14.4, Hct 42.6, Plt Count 234 07/14/22 13:00: Sodium 137, Potassium 3.6, BUN 15, Creatinine 0.91, Glucose 106, Total Bilirubin 0.6, AST 35, ALT 78 H, Alkaline Phosphatase 89 Assessment and Plan - Plan Assessment TIA rule out stroke Hypertension BPH Plan Symptoms resolved Continue aspirin and statin Continue neurochecks as ordered Patient currently on telemetry Echo pending MRI pending Resume home medication when appropriate DVT PPX- Lovenox Full Code Discharge Plan: Home Plan to discharge in: 48 Hours - Advance Directives Does patient have a Living Will: Yes Does patient have a Durable POA for Healthcare: Yes - Code Status/Comfort Care Code Status Assessed: Yes (Full code) Critical Care: No Time Spent Managing Pts Care (In Minutes): 50
--- NOTE | 2022-07-14 15:11 | RAD REPORT ---
EXAM DESCRIPTION: MRI - Brain Wo Cont - 07/14/2022 3:00 pm CLINICAL HISTORY: APHASIA Headache, CVA symptomology COMPARISON: Head angio dated 07/14/2022 TECHNIQUE: Multi-sequence, multiplanar MR imaging of the brain was performed without contrast. FINDINGS: No intracranial hemorrhage, hydrocephalus or extra-axial fluid collections.Mild generalize d brain atrophy. No edema or shift of midline structures. No findings to suspect brain mass. There is a small 8 mm acute infarct noted left posterior frontal lobe white matter. Midline structures are normally formed. Mastoid air cells and paranasal sinuses are clear. 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
[2022-07-14] MEDS ORDERED: ASPIRIN EC 81 MG TAB PO ONE (15:15)
[2022-07-14 16:25] LABS: Thyroid Stimulating Hormone 1.91 uIU/mL (0.358-3.740)
[2022-07-14] MEDS ORDERED: TAMSULOSIN 0.4 MG SR CAP PO SCH (21:00)
[2022-07-14] MEDS ORDERED: ATORVASTATIN 40 MG TAB PO SCH (21:00)
[2022-07-14 21:59] VITALS: O2SAT 96
[2022-07-14 22:52] LABS: RPR (Rapid Plasma Reagin) NON-REACT (NON-REACT)
[2022-07-15 00:25] VITALS: BMI 25.2
[2022-07-15 06:21] LABS: Absolute Lymphocytes (CBC) 1.8 K/uL (0.7-4.9); Hematocrit 40.1 % (39.6-49.0); MCV 85.6 fL (80-100); MPV 7.8 fL (7.6-11.3); RBC Red Blood Cell Count 4.69 M/uL (4.33-5.43)
[2022-07-15 06:40] LABS: Albumin 3.4 g/dL (3.4-5.0); Bilirubin Total 0.9 mg/dL (0.2-1.0); Magnesium 2.1 mg/dL (1.6-2.4); Phosphorus 3.3 mg/dL (2.5-4.9); Potassium 3.9 mEq/L (3.5-5.1); Protein, Total 6.7 g/dL (6.4-8.2)
[2022-07-15] MEDS ORDERED: lisinopriL 10 MG TAB PO SCH (09:00)
[2022-07-15] MEDS ORDERED: CLOPIDOGREL 75 MG TABLET PO SCH (09:00)
[2022-07-15] MEDS ORDERED: ASPIRIN EC 81 MG TAB PO SCH (09:00)
[2022-07-15] MEDS ORDERED: ENOXAPARIN 40 MG/0.4 ML SQ SCH (09:00)
[2022-07-15] MEDS ORDERED: PNEUMOCOCCAL VACCINE 0.5 ML IMVAC ONE (12:00)
--- NOTE | 2022-07-15 12:10 | P.DS ---
Admission Date: 07/14/22 Discharge Date: 07/15/22 Primary Care Provider: RASHEED Disposition: ROUTINE DISCHARGE Discharge Condition: GOOD Reason for Admission: TIA Brief History of Present Illness: 77yo M, PMH: HTN, macular degeneration, and BPH. Presented to ED with vision changers and aphasia. He reports additional symptoms of dizziness, dull headache, and poor balance. Patient denies any numbness, or weakness to any of his extremities. Patient also reported symptoms of urinary retention for more than a year. He stated that he took his Solifenacin for the first time in 1 year. Patient does report some noncompliance with his lisinopril and Flomax. Patient's symptoms have resolved. 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 CT head in the ED was negative for acute findings, and patient's symptoms resolved. He was admitted for further evaluation of CVA / likely TIA. CTA head/neck negative for acute process - noted hard plaquing in both carotid buls, mild-moderate and greater on right. Estimated <50% bilateral stenosis. MRI was obtained later in the day and noted 8mm left sided frontal lobe infarct. Patient was treated with aspirin, plavix, atorvastatin, and folic acid. Blood pressure was initially elevated in the [id number] systolic but improved on its own down to [id number]. Patient's symptoms had resolved in the ER, he was evaluated by physical therapy- no further concerns. Patient felt like he was back to his normal baseline. Reviewed the findings with the patient and the new medications he will be prescribed. As stated he has a colonoscopy scheduled in a few weeks, I advised that he would need this to be rescheduled as he would be on aspirin and Plavix. Follow-up PCP, 3-5 days Neurology, Dr. Manriquez, ~1 month Patient was noted to have vitamin d deficiency (26.2). Prescription sent. Low vitamin D has been associated with an increase risk of stroke. Vital Signs/Physical Exam: Temp Pulse Resp BP Pulse Ox 97.8 F 56 14 131/74 96 07/15/22 08:00 07/15/22 08:00 07/15/22 08:00 07/15/22 08:00 07/15/22 08:00 Physical Exam: GEN: Alert, oriented, NAD HEENT: Normal conjunctiva, sclera anicteric CV: Regular rate and rhythm, no edema Pulm: Nonlabored respirations on room air ABD: Soft, nontender, nondistended Neuro: Normal speech, normal affect, str 5/5 Laboratory Data at Discharge: WBC 6.60 thou/uL (4.3-10.9) 07/15/22 05:55 Hgb 13.7 g/dL (13.6-17.9) 07/15/22 05:55 Hct 40.1 % (39.6-49.0) 07/15/22 05:55 Plt Count 215 thou/uL (152-406) 07/15/22 05:55 PT 10.3 SECONDS (9.5-12.5) 07/14/22 13:00 INR 0.94 07/14/22 13:00 APTT 29.4 SECONDS (24.3-36.9) 07/14/22 13:00 Sodium 136 mEq/L (136-145) 07/15/22 05:55 Potassium 3.9 mEq/L (3.5-5.1) 07/15/22 05:55 BUN 15 mg/dL (7-18) 07/15/22 05:55 Creatinine 0.88 mg/dL (0.70-1.30) 07/15/22 05:55 Glucose 115 mg/dL (74-106) H 07/15/22 05:55 Phosphorus 3.3 mg/dL (2.5-4.9) 07/15/22 05:55 Magnesium 2.1 mg/dL (1.6-2.4) 07/15/22 05:55 Total Bilirubin 0.9 mg/dL (0.2-1.0) 07/15/22 05:55 AST 36 U/L (15-37) 07/15/22 05:55 ALT 68 U/L (16-61) H 07/15/22 05:55 Alkaline Phosphatase 83 U/L (45-117) 07/15/22 05:55 Triglycerides 132 mg/dL (<150) 07/15/22 05:55 Cholesterol 258 mg/dL (<200) H 07/15/22 05:55 HDL Cholesterol 74 mg/dL (40-60) H 07/15/22 05:55 Cholesterol/HDL Ratio 3.49 07/15/22 05:55 Home Medications: lisinopriL [Lisinopril] 10 mg PO [id number] 12/29/15 Omeprazole 20 mg PO BID 08/30/20 Tamsulosin [Flomax*] 0.4 mg PO BID 08/30/20 Aspirin [Aspirin EC 81 MG] 81 mg PO DAILY 30 Days #30 tab 07/15/22 Atorvastatin Calcium [Lipitor] 40 mg PO BEDTIME 30 Days #30 tab 07/15/22 Cholecalciferol (Vitamin D3) [Vitamin D3] 25 mcg PO DAILY 30 Days #30 cap 07/15/22 Clopidogrel Bisulfate [Plavix*] 75 mg PO DAILY 30 Days #30 tab 07/15/22 Folic Acid 1 mg PO DAILY 30 Days #30 tab 07/15/22 New Medications: Aspirin [Aspirin EC 81 MG] 81 mg PO DAILY 30 Days #30 tab Folic Acid 1 mg PO DAILY 30 Days #30 tab Atorvastatin Calcium [Lipitor] 40 mg PO BEDTIME 30 Days #30 tab Clopidogrel Bisulfate [Plavix*] 75 mg PO DAILY 30 Days #30 tab Cholecalciferol (Vitamin D3) [Vitamin D3] 25 mcg PO DAILY 30 Days #30 cap Physician Discharge Instructions: Presented with acute onset of vision changes and aphasia. CT head in the ED was negative for acute findings, and patient's symptoms resolved. He was admitted for further evaluation of CVA / likely TIA. CTA head/neck negative for acute process - noted hard plaquing in both carotid buls, mild-moderate and greater on right. Estimated <50% bilateral stenosis. MRI was obtained later in the day and noted 8mm left sided frontal lobe infarct. Patient was treated with aspirin, plavix, atorvastatin, and folic acid. Blood pressure was initially elevated in the [id number] systolic but improved on its own down to [id number]. Patient's symptoms had resolved in the ER, he was evaluated by physical therapy- no further concerns. Patient felt like he was back to his normal baseline. Reviewed the findings with the patient and the new medications he will be prescribed. As stated he has a colonoscopy scheduled in a few weeks, I advised that he would need this to be rescheduled as he would be on aspirin and Plavix. Follow-up PCP, 3-5 days Neurology, Dr. Manriquez, ~1 month Patient was noted to have vitamin d deficiency (26.2). Prescription sent. Low vitamin D has been associated with an increase risk of stroke. Diet: AHA Followup: Chalo Manriquez MD [ASSOCIATE-ACTIVE - CAN ADMIT] - (Call to schedule appointment) Time spent managing pt's care (in minutes): 45
[2022-07-15 12:21] VITALS: BP 113/68; TEMP 97.6
--- NOTE | 2022-07-17 17:43 | EKG ---
Test Date: 2022-07-14 Test Time: 12:39:55 Kettle Coordinator: PARISH MEASUREMENT RESULTS: Intervals: Rate: 62 WA: 172 QRSD: 98 QT: 414 QTc: 420 [place]: P: 63 WA: 172 QRS: -84 T: 66 INTERPRETIVE STATEMENTS: Normal sinus rhythm Left axis deviation Incomplete right bundle branch block Abnormal ECG Compared to ECG 08/30/2020 07:45:50 Left-axis deviation now present Incomplete right bundle-branch block now present Sinus bradycardia no longer present Myocardial infarct finding no longer present Electronically Signed On 07-17-22 17:37:19 CDT by Italo Lopez
== END 2022-07-15 13:52 | disposition home or self-care (01) ==
LOC: ER 12:14 → ERHOLD 14:38 → 2ND 16:14
PROVIDERS: ADMIT Hospitalist; ATTEND Hospitalist
DX: I63.9 Cerebral infarction, unspecified (principal); R47.01 Aphasia; R29.700 NIHSS score 0; I10 Essential (primary) hypertension; H35.30 Unspecified macular degeneration; N40.0 Benign prostatic hyperplasia without lower urinary tract symptoms
CPT/HCPCS: 85025 ×2; 80048; 36415 ×2; 83735; 84100; 85610; 80061; 82565; 80076; 86592; 85730; 84443; 84484; 84439; 82607; 80053; 81241; 81240; 82306; 83090; 85300; 85302; 85305; 85306; 86021 ×2; 86147 ×2; 84165; 70496; 70498; 70450; 71045; 70551; 97116; 97161; 99285; Q9967; J1650; 83516; 86146; 93005; G0378

== ENCOUNTER 2024-01-12 08:02 | Emergency (ER) | payer OTHER ==
[2024-01-12] MEDS ORDERED: AMOX/K CLAV 875 MG TAB ONE (08:16)
[2024-01-12] MEDS ORDERED: TDAP (DIPHTH,PERTUSS(ACELL),TET VAC) 0.5 ML VIAL IMVAC ONE (08:17)
--- NOTE | 2024-01-12 08:44 | ER ---
Nurse's Notes [facility] Name: Neo Winston Age: 78 yrs Sex: Male : 1945 Arrival Date: 01/12/2024 Time: 08:02 Bed 8 Private MD: Diagnosis: Bitten by cat Presentation: 01/11 08:24 Chief complaint: Patient states: I was trying to swat my cat (inside cat) off my bed ko1 and she bit me on the arm on the . Coronavirus screen: At this time, the client does not indicate any symptoms associated with coronavirus-19. Ebola Screen: No symptoms or risks identified at this time. Initial Sepsis Screen: Does the patient meet any 2 criteria? No. Patient's initial sepsis screen is negative. Does the patient have a suspected source of infection? No. Patient's initial sepsis screen is negative. Risk Assessment: Do you want to hurt yourself or someone else? Patient reports no desire to harm self or others. Onset of symptoms was January 12, 2024. 08:24 Method Of Arrival: Ambulatory ko1 08:24 Acuity: HAYLEY 4 ko1 Triage Assessment: 08:26 Bite description: bite sustained to dorsal aspect of left forearm by a cat, animal ko1 information: Appearance: appeared well, is from animal, vaccination(s) is not up to date was sustained 6-12 hours ago. Animal status: known and can be quarantined. General: Appears in no apparent distress. Behavior is calm, cooperative, appropriate for age. Pain: Denies pain. EENT: No deficits noted. Neuro: No deficits noted. Cardiovascular: No deficits noted. Respiratory: No deficits noted. GI: No deficits noted. : No deficits noted. Derm: Wound noted dorsal aspect of left forearm. Musculoskeletal: No deficits noted. Injury Description:. Historical: - Allergies: 08:26 No Known Allergies; ko1 - PMHx: 08:26 Hypertension; macular degeneration; ko1 - PSHx: 08: TURP; ko1 - Immunization history:: Adult Immunizations unknown. - Infectious Disease History:: Denies. - Family history:: not pertinent. - Social history:: Smoking status: Patient denies any tobacco usage or history of. Screenin: [facility] ED Fall Risk Assessment (Adult) History of falling in the last 3 months, ko1 including since admission No falls in past 3 months (0 pts) Confusion or Disorientation No (0 pts) Intoxicated or Sedated No (0 pts) Impaired Gait No (0 pts) Mobility Assist Device Used No (0 pt) Altered Elimination No (0 pt) Score/Fall Risk Level 0 - 2 = Low Risk Oriented to surroundings, Maintained a safe environment, Educated pt \T\ family on fall prevention, incl call for assistance when getting out of bed, Assessed \T\ reinforced patient's understanding of fall precautions, Provided non-skid footwear, Hourly rounding (assess needs \T\ fall precautionary measures) done. Abuse screen: Denies threats or abuse. Denies injuries from another. Nutritional screening: No deficits noted. Tuberculosis screening: No symptoms or risk factors identified. Assessment: 08:29 Reassessment: see triage note. Derm: Skin is intact, Skin is pink, warm \T\ dry. ko1 09:04 Reassessment: animal control with patient, will discharge when complete. ko1 Vital Signs: 08:24 BP 156 / 69; Pulse 55; Resp 18; Temp 97.2; Pulse Ox 98% on R/A; ko1 ED Course: 08:06 Patient arrived in ED. im 08:07 Vinny Simental MD is Attending Physician. soumya 08:14 Luanne Alvares, YOSVANY is Primary Nurse. ko1 08:19 Patient has correct armband on for positive identification. Bed in low position. Call ko1 light in reach. Side rails up X 1. Provided Education on: meds. Pulse ox on. NIBP on. Door closed. Noise minimized. Lights dimmed. Warm blanket given. Pillow given. 08:19 No provider procedures requiring assistance completed. Patient did not have IV access ko1 during this emergency room visit. 08:25 Animal control [place] police department dispatch called/ She will page the animal eb process controller lathe set up person, they will either show up or call me back. 08:26 Triage completed. ko1 08:26 Arm band placed on right wrist. Patient placed in an exam room, on a stretcher, on ko1 pulse oximetry, Patient notified of wait time. 08:38 Forearm Left XRAY In Process Unspecified. EDMS 08:43 Evin Mullen MD is Referral Physician. soumya Administered Medications: 08:18 Drug: Boostrix Tdap IM 0.5 ml IM once; as a single dose Route: IM; Site: left deltoid; ko1 08:34 Follow up: Response: No adverse reaction ko1 08:19 Drug: Amoxicillin-Clavulanate PO 875 mg PO once Route: PO; ko1 08:34 Follow up: Response: No adverse reaction ko1 08:57 Drug: Skqisfil-Cmzgxbodlv-Uxssibsyo Topical Ointment 1 application Topical once Route: ko1 Topical; Site: affected area; Medication: 08:19 Vaccine Information Statement (VIS) provided today. Questions and/or concerns ko1 addressed. VIS edition date: 2017. Outcome: 08:43 Discharge ordered by . soumya 09:07 Discharged to home ambulatory, koIngrid 09:07 Condition: stable 09:07 Discharge instructions given to patient, Instructed on discharge instructions, follow up and referral plans. medication usage, wound care, Demonstrated understanding of instructions, follow-up care, medications, wound care, Prescriptions given X 2, 09:15 Patient left the ED. ko1 Signatures: Dispatcher [employer] EDMS Vinny Simental MD MD cha Botello, Elizabeth eb Oliver, Kathy, YOSVANY RN ko1 Yokasta Hogan Corrections: (The following items were deleted from the chart) 08:45 08:26 Bite description: bite sustained to dorsal aspect of left forearm by a cat, koIngrid animal information: Appearance: appeared well, is from animal, vaccination(s) is current, was sustained 6-12 hours ago. Animal status: known and can be quarantined, ko1 09:01 08:24 Chief complaint: Patient states: I was trying to swat my cat (inside cat) off my ko bed and she bit me on the arm last night ko1
--- NOTE | 2024-01-12 08:44 | EDPHYS ---
Physician Documentation [facility] Name: Neo Winston Age: 78 yrs Sex: Male : 1945 Arrival Date: 01/12/2024 Time: 08:02 Bed 8 Private MD: ED Physician Vinny Simental HPI: 01/11 08:14 This 78 yrs old Male presents to ER via Unassigned with complaints of Cat soumya Bite. 08:14 The patient was bitten on the left arm, by a cat. Onset: The symptoms/episode soumya began/occurred this morning. Animal information: The animal was reported to appear healthy. is unknown, The animal is known and can be quarantined. Secondary to the bite the patient reports pain, swelling, warmth. Associated signs and symptoms: The patient has no apparent associated signs or symptoms. Severity of symptoms: At their worst the symptoms were mild, in the emergency department the symptoms are unchanged. The patient has not experienced similar symptoms in the past. Historical: - Allergies: 08:26 No Known Allergies; ko1 - PMHx: 08:26 Hypertension; macular degeneration; ko1 - PSHx: 08:26 TURP; ko1 - Immunization history:: Adult Immunizations unknown. - Infectious Disease History:: Denies. - Family history:: not pertinent. - Social history:: Smoking status: Patient denies any tobacco usage or history of. ROS: 08:14 Constitutional: Negative for fever, chills, and weight loss, Eyes: Negative for injury, soumya pain, redness, and discharge, ENT: Negative for injury, pain, and discharge, Neck: Negative for injury, pain, and swelling, Cardiovascular: Negative for chest pain, palpitations, and edema, Respiratory: Negative for shortness of breath, cough, wheezing, and pleuritic chest pain, Abdomen/GI: Negative for abdominal pain, nausea, vomiting, diarrhea, and constipation, Back: Negative for injury and pain, : Negative for injury, bleeding, discharge, and swelling, Neuro: Negative for headache, weakness, numbness, tingling, and seizure, Psych: Negative for depression, anxiety, suicide ideation, homicidal ideation, and hallucinations, Allergy/Immunology: Negative for hives, rash, and allergies, Endocrine: Negative for neck swelling, polydipsia, polyuria, polyphagia, and marked weight changes, Hematologic/Lymphatic: Negative for swollen nodes, abnormal bleeding, and unusual bruising, 08:14 MS/extremity: Positive for bite, erythema, pain, swelling, 08:14 Skin: Positive for cellulitis, swelling, of the dorsal aspect of left forearm and palmar aspect of left forearm, Exam: 08:14 Constitutional: This is a well developed, well nourished patient who is awake, alert, soumya and in no acute distress. Head/Face: Normocephalic, atraumatic. Eyes: Pupils equal round and reactive to light, extra-ocular motions intact. Lids and lashes normal. Conjunctiva and sclera are non-icteric and not injected. Cornea within normal limits. Periorbital areas with no swelling, redness, or edema. ENT: Nares patent. No nasal discharge, no septal abnormalities noted. Tympanic membranes are normal and external auditory canals are clear. Oropharynx with no redness, swelling, or masses, exudates, or evidence of obstruction, uvula midline. Mucous membranes moist. Neck: Trachea midline, no thyromegaly or masses palpated, and no cervical lymphadenopathy. Supple, full range of motion without nuchal rigidity, or vertebral point tenderness. No Meningismus. Chest/axilla: Normal chest wall appearance and motion. Nontender with no deformity. No lesions are appreciated. Cardiovascular: Regular rate and rhythm with a normal S1 and S2. No gallops, murmurs, or rubs. Normal PMI, no JVD. No pulse deficits. Respiratory: Lungs have equal breath sounds bilaterally, clear to auscultation and percussion. No rales, rhonchi or wheezes noted. No increased work of breathing, no retractions or nasal flaring. Abdomen/GI: Soft, non-tender, with normal bowel sounds. No distension or tympany. No guarding or rebound. No evidence of tenderness throughout. Back: No spinal tenderness. No costovertebral tenderness. Full range of motion. Male : Normal genitalia with no discharge or lesions. Skin: Warm, dry with normal turgor. Normal color with no rashes, no lesions, and no evidence of cellulitis. Neuro: Awake and alert, GCS 15, oriented to person, place, time, and situation. Cranial nerves II-XII grossly intact. Motor strength 5/5 in all extremities. Sensory grossly intact. Cerebellar exam normal. Normal gait. Psych: Awake, alert, with orientation to person, place and time. Behavior, mood, and affect are within normal limits. 08:14 Musculoskeletal/extremity: ROM: intact in all extremities, Circulation is intact in all extremities. Sensation intact. Compartment Syndrome exam of affected extremity: is normal. DVT Exam: negative Homans' sign noted on exam, no appreciated bluish discoloration, pain, swelling, tenderness, Vital Signs: 08:24 BP 156 / 69; Pulse 55; Resp 18; Temp 97.2; Pulse Ox 98% on R/A; ko1 MDM: 08:07 Patient medically screened. [facility] 08:14 Differential diagnosis: superficial laceration, tendon injury, vascular injury, rabies, soumya cellulitis. Rabies Status: Rabies immunization is not indicated. Data reviewed: vital signs, nurses notes, radiologic studies, plain films. Consideration of Admission/Observation Escalation of care including admission/observation considered. I considered the following discharge prescriptions or medication management in the emergency department Medications were administered in the Emergency Department. See MAR. Independent interpretation of the following test(s) in the Emergency Department X-Ray: My interpretation is NO FX, NO FB. Historians other than the Patient: PT WELL INFORMED. Care significantly affected by the following chronic conditions: NONE, SEE HERI. Counseling: I had a detailed discussion with the patient and/or guardian regarding the historical points, exam findings, and any diagnostic results supporting the discharge/admit diagnosis, lab results, radiology results. 01/11 08:14 Order name: Forearm Left XRAY [facility] 01/11 08:14 [facility] ANIMAL CONTROL; Complete Time: 08:27 soumya Administered Medications: 08:18 Drug: Boostrix Tdap IM 0.5 ml IM once; as a single dose Route: IM; Site: left deltoid; ko1 08:34 Follow up: Response: No adverse reaction ko1 08:19 Drug: Amoxicillin-Clavulanate PO 875 mg PO once Route: PO; ko1 08:34 Follow up: Response: No adverse reaction ko1 08:57 Drug: Termewwq-Vkwektdvxb-Pzrtszfnr Topical Ointment 1 application Topical once Route: ko1 Topical; Site: affected area; Disposition Summary: 01/12/24 08:43 Discharge Ordered Notes: Location: Home soumya Problem: new soumya Symptoms: have improved soumya Condition: Stable soumya Diagnosis - Bitten by cat soumya Followup: soumya - With: Private Physician - When: 2 - 3 days - Reason: Recheck today's complaints, Continuance of care, Re-evaluation by your physician Followup: soumya - With: Evin Mullen MD - When: 2 - 3 days - Reason: Recheck today's complaints, Re-evaluation by your physician Discharge Instructions: - Discharge Summary Sheet soumya - Animal Bite, Adult, [id number]-[id number] soumya - Animal Bite, Adult [facility] Forms: - Medication Reconciliation Form soumya - Antibiotic Education soumya - Prescription Opioid Use soumya - Patient Portal Instructions [facility] - Leadership Thank You Letter [facility] Prescriptions: - acetaminophen-codeine 300-30 mg Oral tablet - take 1 tablet ORAL route every 4 hours PRN PAIN; 20 tablet; Refills: 0, Product [facility] Selection Permitted - Augmentin 875-125 mg Oral Tablet - take 1 tablet ORAL route every 12 hours for 10 days; 20 tablet; Refills: 0, soumya Product Selection Permitted Signatures: Dispatcher [employer] Vinny Mackay MD MD cha Oliver, Kathy, RN RN ko1
--- NOTE | 2024-01-12 09:13 | RAD REPORT ---
EXAM DESCRIPTION: RAD - Forearm Left - 01/12/2024 8:36 am CLINICAL HISTORY: Left forearm pain status post injury FINDINGS: No fracture is seen. No bony destructive lesion noted. Foreign body not seen. Marked arthritis first carpometacarpal joint
[2024-01-12 09:19] VITALS: BP 156/69; TEMP 97.2; O2SAT 98
== END 2024-01-12 09:15 | disposition home or self-care (01) ==
LOC: ER 08:02
DX: S41.152A Open bite of left upper arm, initial encounter (principal); W55.01XA Bitten by cat, initial encounter; Y93.9 Activity, unspecified; Y92.9 Unspecified place or not applicable; Z23 Encounter for immunization
CPT/HCPCS: 96372; 99284